=== PATIENT | female | born 1970 | race African-American/Black ===

== ENCOUNTER 2022-02-20 07:51 | Emergency (ER) | payer SELFPAY | END 2022-02-20 09:38 | disposition home or self-care (01) | LOC: ERS 07:51 | DX: K03.81 Cracked tooth (principal); K02.9 Dental caries, unspecified | CPT/HCPCS: 99282 ==

== ENCOUNTER 2023-12-21 12:55 | Outpatient (CLI) | payer OTHER | END 2023-12-21 12:56 | disposition home or self-care (01) | LOC: BICMAMMO 12:55 | PROVIDERS: ATTEND Family Medicine | DX: Z12.31 Encounter for screening mammogram for malignant neoplasm of breast (principal); N63.21 Unspecified lump in the left breast, upper outer quadrant | CPT/HCPCS: 77063; 77067 ==

== ENCOUNTER 2023-12-28 08:00 | Outpatient (CLI) | payer OTHER | END 2023-12-28 08:01 | disposition home or self-care (01) | LOC: BICMAMMO 08:00 | PROVIDERS: ATTEND Family Medicine | DX: D24.2 Benign neoplasm of left breast (principal) | CPT/HCPCS: 19083; 88305; G0279 ==